=== PATIENT | female | born 1955 | race Caucasian/White ===

== ENCOUNTER → 2022-06-30 11:18 | Outpatient (BNVA) | payer OTHER, SELFPAY | PROVIDERS: Family Provider Family Medicine; PCP Family Medicine; Visit Provider Family Medicine | DX: E78.2 Mixed hyperlipidemia (principal); I10 Essential (primary) hypertension; M25.512 Pain in left shoulder; Z76.89 Persons encountering health services in other specified circumstances | CPT/HCPCS: 80053; 80061; 84443; 85025 ==

== ENCOUNTER → 2023-03-13 18:36 | Outpatient (BNVA) | payer MEDICARE, SELFPAY | PROVIDERS: Family Provider Family Medicine; PCP Family Medicine | DX: R30.0 Dysuria (principal); N10 Acute pyelonephritis | CPT/HCPCS: 81000; 87077; 87086; 87184 ==

== ENCOUNTER 2023-03-24 11:22 | Emergency (ER) | payer MEDICARE, SELFPAY ==
[2023-03-24 11:26] VITALS: BP 110/76; PULSE 86; RESP 16; TEMP 37; O2SAT 96; BMI 28.1
--- NOTE | 2023-03-24 11:53 | ED_ITS ---
HPI - Female Genitourinary General: Chief complaint: Urogenital-Female Stated complaint: urinary pain Time Seen by Provider: 03/24/23 11:36 History of Present Illness: Patient is a 67-year-old female who comes to the ED with fevers and nausea. Symptoms started approximately 2 weeks ago. She went and saw urgent care clinic back on March 13 and was diagnosed with pyelonephritis and discharged home on antibiotic. She has been taking her prescribed Bactrim. Over the past week she still having fevers and nausea. She has not had any episodes of emesis. She says that he food or fluids cause worsening nausea. Patient did state that she always has some food before she takes her Bactrim. She denies any UTI symptoms at this time such as dysuria, hematuria or any flank pain or back pain. Denies any abdominal pain. Patient has not taken any Tylenol or ibuprofen today and does not currently have a fever. Associated symptoms: Reports nausea; Deny abdominal pain or headache(s) Review of Systems 2 Const: Reports: fever(s); Denies: chills or fatigue Eyes: Denies: change in vision or eye discomfort ENMT: Denies: throat pain, odynophagia, nasal discharge or nasal congestion Card: Denies: chest pain, palpitations, edema, swelling of feet/ankles, dyspnea on exertion or orthopnea Resp: Denies: dyspnea, productive cough or non-productive cough GI: Reports: nausea; Denies: abdominal pain, vomiting, diarrhea, constipation or hematochezia : Denies: flank pain, dysuria or hematuria Musc: Denies: neck pain, back pain or extremity swelling Skin/Breast: Denies: rash or new lesions Neuro: Denies: headache(s), numbness in extremities or weakness in extremities PFS ED PFSH: Medical History Acute laryngitis Hiatal hernia URI with cough and congestion Surgical History H/O abdominal hysterectomy History of appendectomy History of carpal tunnel surgery of right wrist Hx of tonsillectomy Family History Father CAD (coronary artery disease) Hypertension Mother Cancer Hypertension Lung disease Denies family history of Diabetes Clotting disorder Dementia Hyperlipidemia Psychiatric illness Chronic kidney disease (CKD) Suicide Anesthesia complication Bleeding disorder Family history of premature coronary artery disease Stroke Social History Smoking and tobacco status: never smoked Female Reproductive History: Spontaneous abortions: No Physical Exam Const: COMMON NORMALS: no acute distress, patient oriented x3, healthy appearing and alert GENERAL APPEARANCE: cooperative and comfortable HENMT: COMMON NORMALS: normocephalic HEAD & SCALP: normocephalic MOUTH: Normal oral and palatal mucosa present THROAT: posterior oropharynx normal and uvula midline Neck/C-Spine: COMMON NORMALS: supple GENERAL: Yes normal visual inspection Resp: COMMON NORMALS: normal respiratory effort, No retractions, No use of accessory muscles and clear to auscultation bilaterally AUSCULTATION: clear to auscultation bilaterally Cardio: COMMON NORMALS: regular rate, regular rhythm, S1 normal heart sound present, S2 normal heart sound present, No gallops present (Cardio), No clicks present (Cardio), No murmurs present (Cardio) and Peripheral pulses 2+ throughout RATE: regular rate RHYTHM: regular rhythm HEART SOUNDS: S1 normal heart sound present and S2 normal heart sound present PERIPHERAL PULSES: Peripheral pulses 2+ throughout GI: COMMON NORMALS: Normal to inspection, nondistended, normoactive bowel sounds present, Soft to palpation, non-tender and no masses PALPATION: Yes Soft to palpation : COMMON NORMALS: Yes no CVA tenderness BLADDER/KIDNEY EXAM: Yes bladder normal to palpation and Yes no CVA tenderness BIMANUAL EXAM - VAGINA & UTERUS: Yes bladder normal to palpation Back/Pelvis: COMMON NORMALS: no CVA tenderness Extremity: COMMON NORMALS: normal to inspection Neuro: COMMON NORMALS: patient oriented x3 SENSORIUM/ORIENTATION: Yes alert GAIT: Yes Normal gait present Skin: GENERAL SKIN EXAM: dry skin Course Vital Signs: Vital signs: Vital Signs Temperature 98.6 F 03/24/23 11:26 Pulse Rate 75 03/24/23 15:40 Respiratory Rate 16 03/24/23 12:34 Blood Pressure 104/66 03/24/23 15:40 Pulse Oximetry 96 03/24/23 15:40 Oxygen Delivery Me thod Room Air 03/24/23 13:08 [facility] - Female Medical Decision Making Patient is a 67-year-old female who comes to the ED with fevers and nausea. Symptoms started approximately 2 weeks ago. She went and saw urgent care clinic back on March 13 and was diagnosed with pyelonephritis and discharged home on antibiotic. She has been taking her prescribed Bactrim. Over the past week she still having fevers and nausea. She has not had any episodes of emesis. She says that he food or fluids cause worsening nausea. Patient did state that she always has some food before she takes her Bactrim. She denies any UTI symptoms at this time such as dysuria, hematuria or any flank pain or back pain. Denies any abdominal pain. Patient has not taken any Tylenol or ibuprofen today and does not currently have a fever. Vitals are stable. Patient is afebrile and she appears nontoxic and in no acute distress or pain. patient has no abdomi nal tenderness, no bladder tenderness CVA tenderness. Rest of exam is benign. White blood cell count 5.3 and the rest of CBC was unremarkable. Sodium 128 and creatinine was 1.0 the rest of CBC and CMP are unremarkable. I reviewed patient's UA results that were from urgent care earlier today and there were no signs of any UTI, RBCs or white blood cells. Chest x-ray and KUB x-ray showed no acute findings. Patient was given 1 L of IV fluids, sodium tablet, nausea meds and her symptoms improved. She was able to tolerate p.o. fluids here in the ED and was stable for discharge home. Her symptoms likely due to viral gastroenteritis although less likely differential diagnosis of UTI or pyelo nephritis. Patient is still taking antibiotic and has 4 more days worth of antibiotic to take. She was discharged home with a prescription for nausea med and diagnosed with viral gastroenteritis, hyponatremia and elevated serum creatinine. She was told to follow-up with her PCP within the next 3 to 5 days to have her sodium levels and creatinine level rechecked. Return to ED precautions given. Patient understood and agreed with plan. Lab Data I reviewed the patient's lab results. I reviewed patient's UA results that were from earlier today at urgent care--UA showed positive protein, ketones. UA was negative for RBCs, white blood cells and nitrates. 03/24/23 12:00 03/24/23 12:00 Radiology Impressions Chest X-Ray 03/24/23 13:37 Impression: Atherosclerosis. KUB X-Ray 03/24/23 13:37 Impression: Fecal material and air in the colon. Laboratory Results WBC 5.3 10^3/uL (4.0-10.0) 03/24/23 12:00 RBC 4.64 10^6/uL (4.1-5.3) 03/24/23 12:00 Hgb 13.2 g/dL (11.5-15.3) 03/24/23 12:00 Hct 39.5 % (37.0-47.0) 03/24/23 12:00 MCV 85.1 fl (81-99) 03/24/23 12:00 MCH 28.4 pg (28.0-34.0) 03/24/23 12:00 MCHC 33.4 g/dL (30.0-36.0) 03/24/23 12:00 RDW 13.5 % (12.1-15.1) 03/24/23 12:00 Plt Count 127 10^3/cmm (130-400) L 03/24/23 12:00 MPV 10.8 fL (7.4-10.4) H 03/24/23 12:00 Neut % (Auto) 55.4 % 03/24/23 12:00 Lymph % (Auto) 33.3 % 03/24/23 12:00 [place] % (Auto) 10.3 % 03/24/23 12:00 Eos % (Auto) 0.0 % 03/24/23 12:00 Baso % (Auto) 0.2 % 03/24/23 12:00 Neut # (Auto) 2.92 10^3/uL (1.8-7.7) 03/24/23 12:00 Lymph # (Auto) 1.8 10^3/uL (0.8-4.8) 03/24/23 12:00 [place] # (Auto) 0.5 10^3/uL (0.2-0.9) 03/24/23 12:00 Eos # (Auto) 0.0 10^3/uL (0.0-0.8) 03/24/23 12:00 Baso # (Auto) 0.0 10^3/uL (0.0-0.1) 03/24/23 12:00 Nucleated RBC % (auto) 0 % 03/24/23 12:00 Nucleated RBCs # 0.0 /100WBC 03/24/23 12:00 Sodium 128 mmol/L (136-145) L 03/24/23 12:00 Potassium 3.9 mmol/L (3.5-5.1) 03/24/23 12:00 Chloride 87 mmol/L (98-107) L 03/24/23 12:00 Carbon Dioxide 26 mmol/L (22-29) 03/24/23 12:00 Anion Gap 18.9 (5-19) 03/24/23 12:00 BUN 19 mg/dL (8-23) 03/24/23 12:00 Creatinine 1.0 mg/dL (0.5-0.9) H 03/24/23 12:00 GFR Calculation 55.3 mL/min (90-130) L 03/24/23 12:00 Glucose 135 mg/dL (65-115) H 03/24/23 12:00 Calculated Osmolality 270 mOsm/kg (285-295) L 03/24/23 12:00 Calcium 9.1 mg/dL (8.5-10.5) 03/24/23 12:00 Total Bilirubin 0.9 mg/dL (0.15-1.2) 03/24/23 12:00 AST 30 U/L (0-32) 03/24/23 12:00 ALT 52 U/L (0-33) H 03/24/23 12:00 Alkaline Phosphatase 155 U/L (35-105) H 03/24/23 12:00 Total Protein 8.0 g/dL (6.6-8.7) 03/24/23 12:00 Albumin 4.1 g/dL (3.5-5.2) 03/24/23 12:00 Globulin 3.9 g/dL (1.3-4.6) 03/24/23 12:00 Discharge Plan Discharge Patient Disposition: Home Clinical Impression: Viral gastroenteritis, Elevated serum creatinine, Hyponatremia Condition: Stable Prescriptions: New ondansetron 4 mg tablet,disintegrating 4 mg PO Q8H PRN (Reason: nausea and vomiting) Qty: 15 0RF No Action PreserVision AREDS-2 250-90-40-1 mg tablet,chewable 1 tab PO BID hydrochlorothiazide 25 mg tablet 25 mg PO DAILY Qty: 90 1RF lisinopril 20 mg tablet 20 mg PO DAILY Qty: 90 1RF metoprolol succinate 50 mg tablet extended release 24 hr 50 mg PO DAILY Qty: 90 1RF simvastatin 20 mg tablet 20 mg PO DAILY Qty: 90 1RF sulfamethoxazole-trimethoprim [Bactrim] 400-80 mg tablet 1 tab PO Q12H 4 Days Qty: 8 0RF Rx Instructions: start these after you finish your other prescription of bactrim ds Discharge Orders: Discharge ED (Routine); Ordered 03/24/23 Ordered By: Tavo Thrasher Referrals: Donnell Ford, DO [Primary Care Provider] - Discharge Diet: Advance as tolerated and Clear Liquid Discharge Activity: Increase activity as tolerated Patient Instructions: Hyponatremia, Gastroenteritis (ED) Activity Restrictions/Additional Instructions: Follow-up with medical provider as directed in the next 3 to 5 days for reevaluation. Have your PCP recheck your sodium and creatinine lab at your next visit. Continue taking your previously prescribed antibiotics until you have co mpleted the course. Make sure you are drinking plenty of fluids including sports drinks with electrolytes to help stay hydrated. Clear liquid diet for the first 12 to 24 hours and slowly advance diet as tolerated. Take medications as prescribed. Return to the ER or your medical provider if condition worsens. Please read and understand discharge instructions. Thank you for choosing [facility] for your healthcare needs today. Please realize this is an emergency room and that we are providing you with a medical screening exam and this may not be complete and all inclusive of all the testing and or work up that you may need to determine your ailment or severity of your illness. It is very important that you follow up as instructed or that you return to the Emergency Department should you have concerns or if your condition changes or worsens in any way. Coding Level of Care Code ED Customer Operations Specialist for Joaquin Zarate
[2023-03-24 12:34] VITALS: BP 101/64; PULSE 75; RESP 16; O2SAT 100
[2023-03-24 12:40] LABS: Basophils % 0.2 %; Hematocrit 39.5 % (37.0-47.0); Hemoglobin 13.2 g/dL (11.5-15.3); Lymphocytes # 1.8 10^3/uL (0.8-4.8); Lymphocytes % 33.3 %; Mean Corpuscular HGB Conc 33.4 g/dL (30.0-36.0); Mean Corpuscular Hemoglobin 28.4 pg (28.0-34.0); Mean Corpuscular Volume 85.1 fl (81-99); Mean Platelet Volume 10.8 fL (7.4-10.4); Monocytes # 0.5 10^3/uL (0.2-0.9); Monocytes % 10.3 %; Neutrophils # 2.92 10^3/uL (1.8-7.7); Neutrophils % 55.4 %; Nucleated Red Blood Cells % 0 %; Platelet Count 127 10^3/cmm (130-400); Red Blood Count 4.64 10^6/uL (4.1-5.3); Red Cell Distribution Width 13.5 % (12.1-15.1); White Blood Count 5.3 10^3/uL (4.0-10.0)
[2023-03-24 12:54] LABS: Alanine Aminotransferase 52 U/L (0-33); Albumin Level 4.1 g/dL (3.5-5.2); Alkaline Phosphatase 155 U/L (35-105); Aspartate Amino Transferase 30 U/L (0-32); Blood Urea Nitrogen 19 mg/dL (8-23); Calcium 9.1 mg/dL (8.5-10.5); Carbon Dioxide 26 mmol/L (22-29); Chloride 87 mmol/L (98-107); Globulin 3.9 g/dL (1.3-4.6); Glomerular Filtration Rate 55.3 mL/min (90-130); Glucose 135 mg/dL (65-115); Osmolality Calculated 270 mOsm/kg (285-295); Sodium 128 mmol/L (136-145); Total Bilirubin 0.9 mg/dL (0.15-1.2)
[2023-03-24 12:56] LABS: Anion Gap 18.9 (5-19); Potassium 3.9 mmol/L (3.5-5.1)
[2023-03-24] MEDS: sodium chloride 0.9% 1,000 ML 999 ML IV (13:02)
[2023-03-24] MEDS: ondansetron 2 mg/ML SDV 2 mL 4 MG IVP (13:02)
--- NOTE | 2023-03-24 13:07 | PC.NURSE ---
TURNED OVER CARE [id number] TO EDDIE RAMIREZ
[2023-03-24 13:08] VITALS: BP 100/64; PULSE 72; O2SAT 98
[2023-03-24 13:08] LABS: Slide Review Slide Review Perform
--- NOTE | 2023-03-24 13:37 | XR_ITS ---
WS: [id number] KUB, AP portable supine, 03/24/2023 Clinical Data: Nausea, decreased appetite Comparison: None. Findings: No abnormal intraabdominal masses or calcifications are seen. There is no dilatated small bowel or ev idence of obstruction. There is fecal material in the colon with a moderate amount of air. The bladder is full. There are ch olecystectomy clips in the right upper quadrant. XR/XR KUB [id number] Impression: Fecal material and air in the colon.
--- NOTE | 2023-03-24 13:37 | XR_ITS ---
WS: [id number] Portable AP upright chest, 03/24/2023 Clinical Data: Fevers Comparison: None. Findings: No nodules, masses or effusions are seen. The heart is normal. The pulmonary vascularity is not increased. No pneumonia or pneumothorax is seen. There are minimal linear atelectatic changes in both lower lobes. The aortic arch and descending thoracic aorta show tortuosity. XR/XR chest 1V portable [id number] Impression: Atherosclerosis.
[2023-03-24] MEDS: ketorolac 30 mg/mL INJ IVP (15:03)
[2023-03-24] MEDS: sodium chloride 1 gm Tablet PO (15:29)
[2023-03-24 15:40] VITALS: BP 104/66; PULSE 75; O2SAT 96
== END 2023-03-24 15:42 | disposition home or self-care (01) ==
PROVIDERS: Emergency Provider Physician Assistant; PCP Family Medicine
DX: A08.4 Viral intestinal infection, unspecified (principal); E87.1 Hypo-osmolality and hyponatremia; R74.8 Abnormal levels of other serum enzymes
CPT/HCPCS: 71045; 74018; 80053; 81000; 85025; 87040; 96361; 96374; 96375; 99285; J1885; J2405; J7030

== ENCOUNTER → 2023-04-20 17:18 | Outpatient (BNVA) | payer MEDICARE, SELFPAY | PROVIDERS: PCP Family Medicine; Visit Provider Emergency Medicine | DX: S93.401A Sprain of unspecified ligament of right ankle, initial encounter (principal); X58.XXXA Exposure to other specified factors, initial encounter; M77.31 Calcaneal spur, right foot | CPT/HCPCS: 73610 ==

== ENCOUNTER → 2023-04-26 11:43 | Outpatient (BNVA) | payer MEDICARE, SELFPAY | PROVIDERS: PCP Family Medicine; Visit Provider Family Medicine | DX: R76.8 Other specified abnormal immunological findings in serum (principal) | CPT/HCPCS: 80053; 85025 ==

== ENCOUNTER → 2024-08-29 12:12 | Outpatient (BNVA) | payer MEDICARE, SELFPAY | PROVIDERS: PCP Family Medicine | DX: I10 Essential (primary) hypertension (principal); E78.2 Mixed hyperlipidemia | CPT/HCPCS: 80053; 80061; 85025 ==

== ENCOUNTER → 2024-11-28 09:18 | Outpatient (BNVA) | payer MEDICARE, SELFPAY | DX: E78.2 Mixed hyperlipidemia (principal) | CPT/HCPCS: 80053; 80061 ==

== ENCOUNTER → 2025-05-15 08:44 | Outpatient (BNVA) | payer MEDICARE, SELFPAY | DX: I10 Essential (primary) hypertension (principal); E78.2 Mixed hyperlipidemia; R41.89 Other symptoms and signs involving cognitive functions and awareness | CPT/HCPCS: 80053; 80061; 82607; 84443 ==